=== PATIENT | male | born 2000 | race Caucasian/White ===

== ENCOUNTER 2020-02-15 21:53 | Emergency (ER) | payer BC ==
[~2020-02-15] VITALS: Ht 180.3 cm; Wt 77.1 kg
[2020-02-15 22:00] VITALS: BP 111/76
--- NOTE | 2020-02-15 22:00 | NUR ---
ED Nurse Note: Patient walked into ED for c/o palpitations and chest pain that was persistent for appoximately an hour prior to arrival. Patient states he has hx of SVT and had an oblation done when he was 9 years old. Patient states the palpitations are not normally persistent for more than a few seconds. He states he does not have active chest pain at this time. Patient connected to school bus monitor and placed in bed. HR is NSR at this time on the monitor with stable HR in the 90's. He is aaox4, breathing is normal and unlabored although patient notes it feels difficult to take a deep breath.
--- NOTE | 2020-02-15 22:37 | Emergency Room Report ---
History of Present Illness General Chief Complaint: Chest Pain Source: Patient Present Illness HPI 19-year-old male here with palpitations. Patient has a history of SVT. He had an ablation performed approximately 10 years ago. Says that he has not had any episodes of palpitations since then but says "sometimes I get a weird little flutters." Says however that earlier tonight for approximately 3 hours he felt severe palpitations and an extremely high heart rate. He has never experienced these symptoms since he was a child before his ablation. Said this resolved on its own before coming to the emergency department. However in the triage room the patient had a heart rate of around 215 bpm but then went down to around 90 bpm on its own without intervention. At this time he denies headaches, fevers, chills, chest pain, palpitations, shortness of breath, back pain, abdominal pain, nausea, vomiting, diarrhea, dysuria, leg swelling. Denies recent long car rides or plane rides. Does not smoke. No recent surgeries. No family history of thrombosis or early cardiac . Allergies: Coded Allergies: No Known Allergies (Unverified , 02/15/20) COVID-19 Screening Contact w/high risk pt: No Experienced COVID-19 symptoms?: No COVID-19 Testing performed EDGER OPERATOR: No Nursing Documentation-PM Past Medical History: No History, Except For Hx Cardiac Problems: Yes - SVT WITH OBLATION AT 9 YO Hx Hypertension: No Hx Pacemaker: No Hx Asthma: No Hx Diabetes: No Hx Cancer: No Hx Gastrointestinal Problems: No Hx Dialysis: No Hx Neurological Problems: No Hx Cerebrovascular Accident: No Review of Systems All Other Systems: negative except mentioned in HPI Physical Exam Vital Signs Date Time Temp Pulse Resp B/P (MAP) Pulse Ox O2 Delivery O2 Flow Rate FiO2 02/15/20 21:53 97.2 96 18 111/76 (88) 95 Room Air Sp02 EP Interpretation: reviewed, normal General Appearance: no apparent distress, alert, non-toxic Head: normocephalic, atraumatic Eyes: bilateral eye normal inspection, bilateral eye PERRL ENT: hearing grossly normal, normal pharynx, no angioedema, normal voice Neck: full range of motion, supple/symm/no masses Respiratory: chest non-tender, lungs clear, normal breath sounds, speaking full sentences Cardiovascular #1: regular rate, rhythm, no edema Cardiovascular #2: 2+ carotid (R), 2+ carotid (L), 2+ radial (R), 2+ radial (L), 2+ dorsalis pedis (R), 2+ dorsalis pedis (L) Gastrointestinal: normal bowel sounds, non tender, soft, non-distended, no guarding, no rebound Rectal: deferred Genitourinary: normal inspection, no CVA tenderness Musculoskeletal: back normal, normal range of motion, gait/station normal, non-tender Neurologic: alert, motor strength/tone normal, oriented x3, sensory intact, responsive, speech normal Psychiatric: judgement/insight normal, memory normal, mood/affect normal, no suicidal/homicidal ideation Lymphatic: no adenopathy Medical Decision Making Diagnostic Impression: Primary Impression: Heart palpitations Additional Impression: History of PSVT (paroxysmal supraventricular tachycardia) ER Course EKG: NSR, no ischemia, intervals WNL. No ectopy. Normal axis. 74 bpm Rhythm strip: patient monitored for arrhythmias - no malignant dysrhythmias, runs of PVCs, nor pauses noted Troponin ordered. Negative Laboratory Tests Test 02/15/20 22:30 White Blood Count 6.1 K/UL (4.8-10.8) Red Blood Count 4.77 M/UL (4.70-6.10) Hemoglobin 14.2 G/DL (14.2-18.0) Hematocrit 41.3 % (42.0-52.0) L Mean Corpuscular Volume 87 FL (80-99) Mean Corpuscular Hemoglobin 29.8 PG (27.0-31.0) Mean Corpuscular Hemoglobin Concent 34.4 G/DL (32.0-36.0) Red Cell Distribution Width 11.3 % (11.6-14.8) L Platelet Count 238 K/UL (150-450) Mean Platelet Volume 8.0 FL (6.5-10.1) Neutrophils (%) (Auto) 57.6 % (45.0-75.0) Lymphocytes (%) (Auto) 28.4 % (20.0-45.0) Monocytes (%) (Auto) 9.8 % (1.0-10.0) Eosinophils (%) (Auto) 2.7 % (0.0-3.0) Basophils (%) (Auto) 1.6 % (0.0-2.0) D-Dimer 0.19 mg/L FEU (0.00-0.49) Sodium Level 142 MMOL/L (136-145) Potassium Level 3.7 MMOL/L (3.5-5.1) Chloride Level 107 MMOL/L (98-107) Carbon Dioxide Level 28 MMOL/L (21-32) Anion Gap 8 mmol/L (5-15) Blood Urea Nitrogen 19 mg/dL (7-18) H Creatinine 1.2 MG/DL (0.55-1.30) Estimated Glomerular Filtration Rate > 60 mL/min (>60) Glucose Level 115 MG/DL (74-106) H Calcium Level 8.6 MG/DL (8.5-10.1) Total Bilirubin 0.4 MG/DL (0.2-1.0) Aspartate Amino Transferase (AST) 11 U/L (15-37) L Alanine Aminotransferase (ALT) 17 U/L (12-78) Alkaline Phosphatase 56 U/L (46-116) Troponin I 0.000 ng/mL (0.000-0.056) Total Protein 6.6 G/DL (6.4-8.2) Albumin 4.1 G/DL (3.4-5.0) Globulin 2.5 g/dL Albumin/Globulin Ratio 1.6 (1.0-2.7) EXAM: XR Chest, 1 View CLINICAL HISTORY: CP TECHNIQUE: Frontal view of the chest. COMPARISON: No relevant prior studies available. FINDINGS: Lungs: Unremarkable. No consolidation. Pleural space: Unremarkable. No pneumothorax. Heart: Unremarkable. No cardiomegaly. Mediastinum: Unremarkable. Bones/joints: Unremarkable. IMPRESSION: No radiographic evidence of acute cardiopulmonary disease. ddx: ACS, dissection, PE, PTX, pericarditis, myocarditis, musculoskeletal, GERD/GI conditions, anxiety, SVT 19-year-old male with a history of SVT status post ablation 10 years ago here with palpitations. Patient was hemodynamically stable and neurovascular intact in the emergency department. He was completely awake and alert and had no episodes of palpitations or chest pain in the emergency department whatsoever. He was watched on the hall monitor for a total of approximately 2 hours and at no point showed any abnormal heart rate or abnormal rhythm. CBC, CMP unremarkable. Troponin negative. D-dimer normal. Had a heart score of 0. EKG was unremarkable. Chest x-ray was normal. Patient has a magnetic doctor with whom he wishes to follow-up. His mother was at the bedside and I explained to them the need to follow-up with cardiology. They expressed understanding. They were told to come back to the emergency department with any worsening symptoms, chest pain, palpitations, shortness of breath, altered mental status, syncope, presyncope. They expressed understanding and patient was discharged. Last Vital Signs Date Time Temp Pulse Resp B/P (MAP) Pulse Ox O2 Delivery O2 Flow Rate FiO2 02/15/20 21:53 97.2 96 18 111/76 (88) 95 Room Air Referrals: NOT CHOSEN IPA/,REFERRING (PCP) Arjun Bee M.D. Feb 15, 2020 22:37
[2020-02-15 22:47] LABS: BASOPHILS % (AUTO) 1.6 % (0.0-2.0); EOSINOPHILS % (AUTO) 2.7 % (0.0-3.0); HEMATOCRIT 41.3 % (42.0-52.0); HEMOGLOBIN 14.2 G/DL (14.2-18.0); LYMPHOCYTES % (AUTO) 28.4 % (20.0-45.0); MEAN CORPUSCULAR VOLUME 87 FL (80-99); MONOCYTES % (AUTO) 9.8 % (1.0-10.0); NEUTROPHILS % (AUTO) 57.6 % (45.0-75.0); PLATELET COUNT 238 K/UL (150-450); RED BLOOD COUNT 4.77 M/UL (4.70-6.10); RED CELL DISTRIBUTION WIDTH 11.3 % (11.6-14.8); WHITE BLOOD COUNT 6.1 K/UL (4.8-10.8)
[2020-02-15 22:55] LABS: ANION GAP 8 mmol/L (5-15); BLOOD UREA NITROGEN 19 mg/dL (7-18); CALCIUM 8.6 MG/DL (8.5-10.1); CARBON DIOXIDE 28 MMOL/L (21-32); CHLORIDE 107 MMOL/L (98-107); CREATININE 1.2 MG/DL (0.55-1.30); POTASSIUM 3.7 MMOL/L (3.5-5.1); SODIUM 142 MMOL/L (136-145)
[2020-02-15 23:07] LABS: ALANINE AMINOTRANSFERASE 17 U/L (12-78); ALBUMIN 4.1 G/DL (3.4-5.0); ALBUMIN/GLOBULIN RATIO 1.6 (1.0-2.7); ALKALINE PHOSPHATASE 56 U/L (46-116); ASPARTATE AMINO TRANSFERASE 11 U/L (15-37); BILIRUBIN,TOTAL 0.4 MG/DL (0.2-1.0)
--- NOTE | 2020-02-15 23:30 | NUR ---
ED Nurse Note: No episode of SVT while connected to automatic drill operator/EKG since being placed in patient room. No pain noted. ERMD bedside speaking with patient and patient's mother.
--- NOTE | 2020-02-15 23:37 | Diagnostic Imaging Report ---
EXAM: XR Chest, 1 View CLINICAL HISTORY: CP TECHNIQUE: Frontal view of the chest. COMPARISON: No relevant prior studies available. FINDINGS: Lungs: Unremarkable. No consolidation. Pleural space: Unremarkable. No pneumothorax. Heart: Unremarkable. No cardiomegaly. Mediastinum: Unremarkable. Bones/joints: Unremarkable. IMPRESSION: No radiographic evidence of acute cardiopulmonary disease.
[2020-02-15 23:50] VITALS: BP 122/65
--- NOTE | 2020-02-15 23:50 | NUR ---
ER DISCHARGE NOTE: Patient is cleared to be discharged per ERMD, pt is aox4, on room air, with stable vital signs. pt was given dc instructions, pt was able to verbalize understanding, pt id band removed. pt is able to ambulate with steady gait. pt took all belongings.
--- NOTE | 2020-02-17 16:03 | Cardiology Report ---
APPROVED REPORT EKG Measurement Heart [id number] <Conclusion> Normal sinus rhythm with sinus arrhythmia Normal ECG
== END 2020-02-15 23:50 | disposition home or self-care (01) ==
LOC: EMR 22:27
DX: R00.2 Palpitations (principal)
CPT/HCPCS: 36415; 71045; 80053; 84484; 85025; 85379; 93005; 99284